=== PATIENT | male | born 1960 | race Caucasian/White ===

== ENCOUNTER → 2020-05-30 | Outpatient (CLI) | payer MEDICARE, OTHER ==
--- NOTE | 2020-05-30 16:07 | MR ---
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 Multiplanar multiecho imaging of the brain was performed without contrast. Ventricles and sulci appear normal. There is no mass effect or midline shift. There is no sign of int racranial hemorrhage. Diffusion images show no evidence of an acute infarct. On the T2 and FLAIR images there are scattered tiny foci of increased signal at the negron-white matter junction of both cerebral hemispheres. Total number is approximately 20 and these measure up to 6 mm . Most of the foci are 2 to 3 mm. Brainstem is intact. Cerebellum appears normal. Sella turcica appears normal. Corpus callosum is inta ct. IMPRESSION: Tiny white matter high signal foci in both cerebral hemispheres could relate to microvascular ischemi a. Demyelinating disease not excluded. No evidence of cortical infarct.
== END | disposition home or self-care (01) ==
LOC: RADMRIMAIN 14:29
PROVIDERS: ATTEND Family Medicine
DX: G37.9 Demyelinating disease of central nervous system, unspecified (principal); R90.82 White matter disease, unspecified
CPT/HCPCS: 70551